=== PATIENT | male | born 1960 | race Caucasian/White ===

== ENCOUNTER 2018-07-23 12:19 | Day surgery (SDC) | payer OTHER ==
--- NOTE | 2018-07-23 13:24 | NUR ---
[address] RHOADES IN TO DO PROCEDURE.INSTRUCTED PT AND FILLED OUT PINK SHEET GIVEN TO OFFICER. DCD PER WC.
--- NOTE | 2018-07-23 13:26 | NUR ---
SEE DICTATION FOR PROCEDURE.
--- NOTE | 2018-07-24 14:40 | OR ---
[facility] [address], [place] [address] Signed DATE OF OPERATION: 07/23/2018 SURGEON: All Rhoades MD PREOPERATIVE DIAGNOSIS: Thyroid nodules x2, left lobe, greater than 2 cm. POSTOPERATIVE DIAGNOSIS: Thyroid nodules x2, left lobe, greater than 2 cm. PROCEDURES PERFORMED: 1. Ultrasonographic survey of thyroid. 2. Ultrasound guided fine-needle aspiration biopsy of thyroid nodule x2. ANESTHESIA: 1% lidocaine. INDICATION: This 57-year-old prisoner at [facility] is a patient of Dr. Hernandez and nurse practitioner Ninfa. He was found on ultrasound to have 2 nodules of the left thyroid lobe, both of them greater than 2 cm in size. Due to his somewhat thick neck, it is not easy to discern nodules from normal thyroid. On that basis, fine-needle aspiration biopsy by ultrasound guidance is recommended. The risks of bleeding, infection, and so forth were reviewed with him. He understands and wished to proceed. FINDINGS: Interrogation of the thyroid with the ultrasound showed normal thyroid on the right side. The isthmus was normal as well. On the left side, there were 2 nodules, one somewhat amorphous the other with a hyperechoic rim. Both were biopsied under ultrasound guidance with direct visualization of the needle within each lesion. DESCRIPTION OF PROCEDURE: The patient was in the Day Surgery area and a pillow was placed beneath the shoulders and the head allowed to gently extend. The anterior neck was prepared with a gel solution and ultrasonographic evaluation undertaken. The right lobe appeared normal. The isthmus was normal. There were 2 separate nodules noted within the left thyroid lobe. The ultrasound device was placed in a sterile cover with gel within the cover itself. The neck was prepared with a chlorhexidine solution. The ultrasound was sterilely Electronically Signed By: ALL RHOADES MD 07/24/18 1440 PATIENT NAME: JULI RODGERS OPERATIVE REPORT DATE OF : 56 REPORT #: [id number] PHYSICIAN: ALL RHOADES MD PCP: DEBBI HAIRSTON REPORT IS CONFIDENTIAL AND NOT TO BE RELEASED WITHOUT AUTHORIZATION [facility] [address], [place] [address] Signed applied to the anterior neck and 1% lidocaine was injected in the central portion of the ultrasound probe that would correspond to the nodule in question on the left side. After satisfactory local anesthetic, a distal intellectual property lawyer syringe goldberg with a 22-gauge needle was passed under direct visualization into the 1st lesion, which had a hyperechoic rim around it. Multiple passes were taken in this area and this was repeated several times. The contents of the aspiration were placed in CytoLyt solution. Aspiration of the needle with the syringe and injection into the solution once again undertaken. A separate needle was then used and the other lesion, which was more amorphous and less well-circumscribed interrogated with the needle and multiple passes taken through it with similar technique. The cells were placed into a separate container for CytoLyt. There was no untoward bleeding. The ultrasound was once again surveyed. There was no sign of hematoma or other problem. A Band-Aid was applied. The patient was taken out of the extension position. 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
== END 2018-07-23 18:00 | disposition home or self-care (01) ==
LOC: OPS 12:19 → DS 12:19 → OPS 18:00
PROC: 0G9G3ZX Drainage of Left Thyroid Gland Lobe, Percutaneous Approach, Diagnostic (ICD-10-PCS; principal; 2018-07-23)
PROC: BG44ZZZ Ultrasonography of Thyroid Gland (ICD-10-PCS; 2018-07-23)
DX: E04.2 Nontoxic multinodular goiter (principal); F32.9 Major depressive disorder, single episode, unspecified; K21.9 Gastro-esophageal reflux disease without esophagitis; F17.210 Nicotine dependence, cigarettes, uncomplicated; Z79.899 Other long term (current) drug therapy; Z79.02 Long term (current) use of antithrombotics/antiplatelets